=== PATIENT | female | born 1990 | race Caucasian/White ===

== ENCOUNTER → 2017-03-05 | Outpatient (CLI) | payer BC ==
[~2017-03-05] MED LIST: ALKA SELTZER; CYAN10004 PO; MULTTAB58 PO
== END | disposition home or self-care (01) ==
LOC: C.PAPS 14:34
PROVIDERS: ATTEND Obstetrics & Gynecology
DX: Z01.411 Encounter for gynecological examination (general) (routine) with abnormal findings (principal); R87.612 Low grade squamous intraepithelial lesion on cytologic smear of cervix (LGSIL)

== ENCOUNTER → 2017-03-05 | Outpatient (CLI) | payer BC ==
[2017-03-08 01:20] LABS: CHLAMYDIA TRACH RNA*** NOT DETECTED (NOT DETECTED); GC (NEIS GONORRHOEAE)RNA** NOT DETECTED (NOT DETECTED)
== END | disposition home or self-care (01) ==
LOC: C.LABSPEC 13:29
PROVIDERS: ATTEND Obstetrics & Gynecology
DX: Z11.3 Encounter for screening for infections with a predominantly sexual mode of transmission (principal)

== ENCOUNTER → 2017-05-10 | Outpatient (CLI) | payer OTHER | END | disposition home or self-care (01) | LOC: C.PATHSPEC 16:05 | PROVIDERS: ATTEND Obstetrics & Gynecology | DX: R87.619 Unspecified abnormal cytological findings in specimens from cervix uteri (principal) ==

== ENCOUNTER 2019-02-18 07:38 | Inpatient (IN) ==
[2019-02-18] MEDS ORDERED: OXYTOCIN 30 UNITS/500 ML BAG IV PRN ×3 (07:42→22:51)
--- NOTE | 2019-02-18 07:48 | History & Physical Report ---
Date of Service February 18, 2019 Assessment & Plan (1) Encounter for supervision in primigravida, antepartum: IUP at 40w 4d presenting to L&D for induction of labor with regular contractions -will perform AROM; consider starting pitocin drip -patient is currently undecided on her pain plan; considering epidural - tracing category I - anticipate History of Present Illness Primary Care Provider: NO PCP Ana is a 28 yo at 40w 4d (dating via LMP) with an LEO of 02/14/19 who presents to L&D for induction of labor. A Benjamin bulb was inserted last night; it fell out at 7am on day of admission. Ana experienced painful contractions overnight while the benjamin was in place, but has not felt any since it fell out. She noticed some vaginal bleeding overnight. + movements - loss of fluid. Blood type is B neg; she was given Rhogam 11/25/18. GBS neg, Rubella Immune. Course: Ana had an atypical PAP smear obtained during this with LGSIL, HPV+. She will have a colposcopy in the post- period. She had an elevated 1 hour glucola, but a normal two hour glucose test. Allergies Allergy/AdvReac Type Severity Reaction Status Date / Time No Known Drug Allergies Allergy Verified 02/17/19 11:03 Home Medications Home Medications Medication Instructions Recorded Confirmed Type vit no.[id number] 1 tab PO DAILY 02/17/19 02/17/19 History [ Vitamin] Patient History Medical History Depression No meds H/O varicella 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; colpo Surgical History S/P wisdom tooth extraction Family History Sister Cervical cancer Kidney disease Ovarian cyst Mother Hypothyroidism Brother Congenital absence of one kidney Social History Preferred Language: Burkin[place] Beliefs That Will Affect Care: None marital status: Current Living Situation: Spouse Other Information That Helps Us Care for You: No Feels Safe at Home: Yes Safety Concerns: Feels Safe At This Time Smoking Status: Never smoker Do You Dip or Chew Tobacco: No ; Second Hand Exposure: No ; Tobacco Cessation Education Requested by Patient: No Hx Alcohol Use: No Hx Substance Use: No Review of Systems no fever, no chills and no sweats no worsening vision no cough and no dyspnea no chest pain, no palpitations and no calf pain no nausea, no vomiting, no constipation and no diarrhea/loose stools no dysuria and no urinary frequency Physical Exam Constitutional: WD/WN, vitals as above Eyes: + anicteric sclerae Neck: normal visual inspection Respiratory: normal respiratory effort, lungs clear to auscultation does not use accessory muscles Auscultation: no crackles, no rales, no wheezes and no pleural rub Cardiovascular: Rate/Rhythm: regular rate and regular rhythm Heart Sounds: normal S1 and normal S2; no gallop, no murmur and no cardiac rub Gastrointestinal (Abdomen): Gravid. Uterus at term; + heart tones; vertex position, estimated weight : 7lbs Neurologic: awake; no focal motor deficits Psychiatric: A+Ox3, euthymic affect Genitourinary: OB Exam Abdomen: + regular contractions Manual OB Exam: + cervical dilation 5 cm, + cervical effacement 80% and + station -1 OB Exam Monitor Tracing: + external FHT monitor used, + external uterine monitor used an d + normal FHT variability Cervical Exam: 5 cm/ 80 % effacement/ -1 station, soft and mid-position Results & Data Laboratory Results 02/18/19 Range/Units 07:51 WBC 11.80 H (4.8-10.8) K/uL RBC 4.40 (4.2-5.4) M/uL Hgb 13.5 (12.0-16.0) g/dL Hct 39.2 (37-47) % MCV 89.1 (80-100) fL MCH 30.7 (25-34) pg MCHC 34.4 (32-36) g/dL RDW Std Deviation 40.3 (36.4-46.3) fL RDW Coeff of Filemon 12.5 (11.5-14.5) % Plt Count 177 (130-400) K/uL MPV 10.0 (7.4-10.4) fL Code Status & VTE Plan VTE Prophylaxis Plan VTE Prophylaxis will be ordered: Yes Monitoring External Monitor Baseline HR: 120s bpm. Moderate Variability. +2 accels within 20 min. No decels. Category I Tocodynamometer Contractions occurring every 4-5 minutes. Supervising Physician Co-Signing Physician Notes Resident Physician Supervision Note: I interviewed and examined the patient. Discussed with Dr. Luther and agree with findings and plan as documented in the note. Any exceptions or clarifications are listed here: [None] Documented By: Lavern Virgen MD, FACOG Resident Activity Tracking Resident Involvement: Resident Care Provided Care Provided: OB Delivery
[2019-02-18 08:07] LABS: Hematocrit (blood only) 39.2 % (37-47); Hemoglobin 13.5 g/dL (12.0-16.0); Mean Corpuscular Hemoglobin 30.7 pg (25-34); Mean Corpuscular Volume 89.1 fL (80-100); Platelet Count 177 K/uL (130-400); RDW Coefficient of Variation 12.5 % (11.5-14.5); RDW Standard Deviation 40.3 fL (36.4-46.3)
[2019-02-18 08:11] LABS: Mean Corpuscular Hgb Conc 34.4 g/dL (32-36)
[2019-02-18] MEDS: LACTATED RINGER'S 1,000 ML IV PRN ×3 (08:18→14:15)
[2019-02-18] MEDS ORDERED: fentaNYL citrate 100 MCG/2 ML VIAL ONE (11:37)
[2019-02-18] MEDS ORDERED: BUPIVACAINE 0.25% 30 ML VIAL ONE (11:37)
[2019-02-18] MEDS ORDERED: ePHEDrine sulfate 50 MG/ML AMP ONE (11:37)
[2019-02-18] MEDS ORDERED: fentaNYL 2MCG/ML ROPIV 1.25MG/ML 100 ML BAG EPI ONE (11:38)
--- NOTE | 2019-02-18 11:54 | Anesthesiology Consultation ---
Date of Service February 18, 2019 Assessment & Plan Chart Review Chart Review: Acceptable Risk for Surgery and Acceptable Risk for Labor Epidural Consults Requested none ASA ASA2 Proposed Anesthesia Anesthesia Type: Labor Epidural Risk / Benefits Reviewed With: PT / POA / Parent / Guardian, Accepts Plan and Informed Consent Obtained History Height/Weight Height: 5 ft 3 in Weight: 73.482 kg Allergies Allergy/AdvReac Type Severity Reaction Status Date / Time No Known Drug Allergies Allergy Verified 02/17/19 11:03 Medications Home Medications Medication Instructions Recorded Confirmed Last Taken vit no.[id number] 1 tab PO DAILY 02/17/19 02/17/19 02/17/19 08:00 [ Vitamin] Active Medications Generic Name Dose Route Start Last Admin Trade Name Freq PRN Reason Stop Dose Admin Lactated Ringer's 1,000 mls @ 125 mls/hr 02/18/19 07:43 02/18/19 11:33 Lr IV 02/20/19 07:42 999 mls/hr .Q8H PRN Infusion L&D Protocol Protocol Past Medical History Medical History Depression No meds H/O varicella 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; colpo Exercise / Class Metabolic Activity II 4-5 Yardwork/Stairs/Walk up hill Past Family History Family History Sister Cervical cancer Kidney disease Ovarian cyst Mother Hypothyroidism Brother Congenital absence of one kidney Past Surgical History Surgical History S/P wisdom tooth extraction Past Anesthesia History No Hx of Anesthesia Complications and No Family Hx of Anesthesia Complications History of PONV No Hx of PONV and No Hx of Motion Sickness Social History Smoking Status: Never smoker Do You Dip or Chew Tobacco: No Hx Alcohol Use: No Hx Substance Use: No substance use type: does not use Physical Exam Vital Signs Last Vital Signs Temp 36.6 C 02/18/19 11:25 Pulse 80 02/18/19 12:26 Resp 22 02/18/19 11:25 BP 122/75 02/18/19 12:26 Pulse Ox 100 02/18/19 12:26 Testing Laboratory Results 02/18/19 07:51
[2019-02-18] MEDS ORDERED: NALBUPHINE HCL INJ 10 MG/ML AMP IV PRN (12:29)
[2019-02-18] MEDS ORDERED: DiphenhydrAMINE HCL 50 MG/ML VIAL IV PRN (12:29)
[2019-02-18] MEDS ORDERED: NALOXONE HCL 1 MG in SODIUM CHLORIDE 0.9% 1000ML 1,000 ML IV PRN (12:29)
[2019-02-18] MEDS ORDERED: fentaNYL 2MCG/ML ROPIV 1.25MG/ML 100 ML BAG EPI PRN (12:29)
[2019-02-18] MEDS ORDERED: ePHEDrine sulfate 50 MG/ML AMP IV PRN (12:29)
[2019-02-18] MEDS ORDERED: NALOXONE HCL 0.4 MG/1 ML VIAL/CARP IV PRN (12:29)
[2019-02-18] MEDS ORDERED: ONDANSETRON INJ 2 MG/ML 2 ML VIAL IV PRN (17:59)
[2019-02-18 21:09] VITALS: O2SAT 99
--- NOTE | 2019-02-18 22:07 | Anesthesiology Progress Note ---
Date of Service February 18, 2019 Anesthesia Post Procedure Vital Signs Vital Signs: Temp Pulse Resp BP Pulse Ox 02/18/19 22:00 92 H 118/73 02/18/19 21:45 18 02/18/19 21:30 89 18 117/73 02/18/19 21:16 37.0 C 92 H 18 124/70 02/18/19 21:08 92 H 99 02/18/19 21:03 100 H 98 02/18/19 21:02 99 H 115/68 02/18/19 20:58 91 H 96 02/18/19 20:53 106 H 99 02/18/19 20:51 87 91 02/18/19 20:48 75 130/94 02/18/19 20:46 75 99 02/18/19 20:43 85 91 02/18/19 20:41 86 98 02/18/19 20:37 83 91 02/18/19 20:36 71 99 02/18/19 20:33 93 H 129/62 02/18/19 20:31 68 100 02/18/19 20:28 73 91 02/18/19 20:26 93 H 100 02/18/19 20:21 73 100 02/18/19 20:18 90 118/63 90 02/18/19 20:16 70 100 02/18/19 20:11 71 100 02/18/19 20:06 71 100 02/18/19 20:05 70 94 02/18/19 20:01 81 100 02/18/19 19:59 78 91 02/18/19 19:56 76 99 02/18/19 19:51 76 100 02/18/19 19:47 73 109/65 02/18/19 19:46 72 99 02/18/19 19:41 81 98 02/18/19 19:36 70 100 02/18/19 19:34 81 114/64 02/18/19 19:31 74 100 02/18/19 19:26 75 100 02/18/19 19:21 71 100 02/18/19 19:17 69 117/72 02/18/19 19:16 65 100 02/18/19 19:11 72 98 02/18/19 19:09 36.7 C 18 02/18/19 19:06 78 100 02/18/19 19:04 75 128/84 02/18/19 19:01 73 100 02/18/19 18:56 73 100 02/18/19 18:51 74 100 02/18/19 18:47 75 131/83 02/18/19 18:46 76 100 02/18/19 18:41 70 100 02/18/19 18:36 78 99 02/18/19 18:32 78 128/85 02/18/19 18:31 70 100 02/18/19 18:26 73 100 02/18/19 18:21 71 100 02/18/19 18:17 81 129/86 02/18/19 18:16 77 99 02/18/19 18:15 95 H 134/82 02/18/19 18:11 76 100 02/18/19 18:06 77 100 02/18/19 18:03 83 128/80 02/18/19 18:01 82 100 02/18/19 17:56 77 100 02/18/19 17:51 79 100 02/18/19 17:47 81 123/81 02/18/19 17:46 83 99 02/18/19 17:41 73 100 02/18/19 17:36 82 100 02/18/19 17:33 78 137/84 02/18/19 17:32 84 94 02/18/19 17:31 84 94 02/18/19 17:26 80 100 02/18/19 17:21 82 100 02/18/19 17:18 76 131/85 02/18/19 17:16 72 100 02/18/19 17:11 82 100 02/18/19 17:06 85 100 02/18/19 17:04 72 135/86 02/18/19 17:01 79 100 02/18/19 16:56 77 100 02/18/19 16:51 94 H 100 02/18/19 16:48 77 132/80 02/18/19 16:46 83 99 02/18/19 16:41 84 99 02/18/19 16:36 82 99 02/18/19 16:31 82 126/70 99 02/18/19 16:26 78 125/79 99 02/18/19 16:22 83 122/73 02/18/19 16:21 80 99 02/18/19 16:16 78 100 02/18/19 16:15 78 128/69 02/18/19 16:12 81 129/74 02/18/19 16:11 84 100 02/18/19 16:06 85 99 02/18/19 16:05 83 124/80 02/18/19 16:01 86 119/77 99 02/18/19 16:00 18 02/18/19 15:57 80 121/75 02/18/19 15:56 83 99 02/18/19 15:52 79 121/75 02/18/19 15:51 80 100 02/18/19 15:48 89 119/55 L 02/18/19 15:46 87 99 02/18/19 15:42 97 H 113/73 02/18/19 15:41 96 H 100 02/18/19 15:40 36.6 C 18 02/18/19 15:36 87 117/71 99 02/18/19 15:31 86 99 02/18/19 15:30 83 120/73 02/18/19 15:26 83 99 02/18/19 15:25 81 118/75 02/18/19 15:21 84 100 02/18/19 15:16 78 110/63 100 02/18/19 15:11 80 100 02/18/19 15:10 82 110/62 02/18/19 15:06 75 111/65 100 02/18/19 15:01 81 100 02/18/19 15:00 81 18 108/63 02/18/19 14:56 80 99 02/18/19 14:55 82 111/60 02/18/19 14:52 84 111/58 L 02/18/19 14:51 83 100 02/18/19 14:47 81 112/63 02/18/19 14:46 87 100 02/18/19 14:42 76 110/61 02/18/19 14:41 78 100 02/18/19 14:36 78 100 02/18/19 14:35 74 108/65 02/18/19 14:31 76 108/62 100 02/18/19 14:30 18 02/18/19 14:26 78 100 02/18/19 14:25 78 111/63 02/18/19 14:24 84 91 02/18/19 14:21 78 109/60 100 02/18/19 14:16 79 100 02/18/19 14:15 78 108/58 L 02/18/19 14:12 81 110/86 02/18/19 14:11 76 100 02/18/19 14:06 76 100 02/18/19 14:05 75 105/59 L 02/18/19 14:01 78 100 02/18/19 14:00 78 18 107/59 L 02/18/19 13:56 73 108/57 L 100 02/18/19 13:52 79 109/57 L 02/18/19 13:51 81 100 02/18/19 13:46 73 100 02/18/19 13:45 72 18 99/56 L 02/18/19 13:41 73 100 02/18/19 13:40 36.7 C 73 90/55 L 02/18/19 13:36 73 100 02/18/19 13:35 76 94/51 L 02/18/19 13:33 74 101/58 L 02/18/19 13:31 81 100 02/18/19 13:30 18 02/18/19 13:26 79 99 02/18/19 13:25 83 93/55 L 02/18/19 13:21 72 93/50 L 100 02/18/19 13:19 73 89/50 L 02/18/19 13:16 73 89/51 L 100 02/18/19 13:15 20 02/18/19 13:12 70 88/54 L 02/18/19 13:11 74 99 02/18/19 13:09 67 102/55 L 02/18/19 13:06 71 99 02/18/19 13:01 81 108/69 99 02/18/19 13:00 20 02/18/19 12:56 81 113/74 99 02/18/19 12:51 77 99 02/18/19 12:50 75 114/70 02/18/19 12:46 75 99 02/18/19 12:45 81 20 114/74 02/18/19 12:41 79 99 02/18/19 12:40 74 115/73 02/18/19 12:38 81 119/75 02/18/19 12:37 80 93 02/18/19 12:36 78 117/75 99 02/18/19 12:34 74 116/76 02/18/19 12:32 71 125/82 02/18/19 12:31 70 98 02/18/19 12:30 67 22 127/85 02/18/19 12:28 75 125/80 02/18/19 12:27 20 02/18/19 12:26 80 122/75 100 02/18/19 12:24 78 117/70 02/18/19 12:22 72 22 126/65 02/18/19 12:21 75 100 02/18/19 12:20 75 130/77 02/18/19 12:18 74 128/79 02/18/19 12:17 22 02/18/19 12:16 72 137/79 100 02/18/19 12:14 121/70 02/18/19 12:12 76 125/65 02/18/19 12:11 74 99 02/18/19 12:10 85 116/65 02/18/19 12:08 82 127/80 02/18/19 12:06 92 H 146/84 H 82 L 02/18/19 12:04 86 144/91 H 02/18/19 12:01 91 H 100 02/18/19 11:56 75 100 02/18/19 11:25 36.6 C 74 22 123/74 02/18/19 10:15 73 124/82 02/18/19 08:20 85 114/75 02/18/19 08:19 36.3 C L 85 18 114/75 Pain Intensity Lower Abdomen: Pain Intensity: 0 Transfer of Care Handoff Completed per policy Notes Mental Status: alert / awake / arousable and participated in evaluation Patient Amnestic to Procedure: Yes Nausea / Vomiting: adequately controlled Pain: adequately controlled Airway Patency, RR, SpO2: stable & adequate BP & HR: stable & adequate Hydration State: stable & adequate Anesthetic Complications: no major complications apparent and Pt Satisfied with anesthetic care
--- NOTE | 2019-02-18 22:08 | Anesthesia Procedure Note ---
Date of Service February 18, 2019 Anesthesia Post Epidural Note Vital Signs Vital Signs: Temp Pulse Resp BP Pulse Ox 37.0 C 92 H 18 118/73 99 02/18/19 21:16 02/18/19 22:00 02/18/19 21:45 02/18/19 22:00 02/18/19 21:08 Pain Intensity Lower Abdomen: Pain Intensity: 0 Notes Mental Status: alert / awake / arousable and participated in evaluation Patient Amnestic to Procedure: Yes Nausea / Vomiting: adequately controlled Pain: adequately controlled Airway Patency, RR, SpO2: stable & adequate BP & HR: stable & adequate Hydration State: stable & adequate Anesthetic Complications: no major complications apparent and Pt Satisfied with anesthetic care
[2019-02-18] MEDS ORDERED: IBUPROFEN 600 MG TAB PO PRN (22:51)
[2019-02-18] MEDS ORDERED: DIPHTHERIA/TETANUS/PERTUSSIS 0.5 ML SYR/VIAL IM ONE (22:51)
[2019-02-18] MEDS ORDERED: SUPERCREAM 0.870% 15 GM JAR EXT PRN (22:51)
[2019-02-18] MEDS ORDERED: ACETAMINOPHEN 325 MG TAB PO PRN (22:51)
[2019-02-18] MEDS ORDERED: BISACODYL 10 MG SUPP PR PRN (22:51)
[2019-02-18] MEDS ORDERED: HYDROCORTISONE ACETATE 25 MG SUPP PR PRN (22:51)
[2019-02-18] MEDS ORDERED: OXYCODONE/ACETAMINOPHEN 5mg/325mg TAB PO PRN (22:51)
[2019-02-19] MEDS: BENZOCAINE 20% AER SPR 82.5 GM CAN EXT PRN (01:27)
--- NOTE | 2019-02-19 01:45 | Delivery Summary ---
DATE OF OPERATION: 02/18/2019 The patient is a 28-year-old G1, P0 white female who presents at 40-4/7 weeks for induction of labor because of post-term . She presented for a cervical balloon on the evening of 02/17. The balloon fell out at 7 a.m. in the morning. She was having regular contractions about 4-5 minutes, but were mild. On presentation to labor and delivery on the morning of 02/18, she was 4 cm dilated. Membranes were ruptured for clear fluid. She received effective epidural analgesia. She did require low dose Pitocin augmentation to continue an effective contraction pattern. She progressed to full dilation, and when the urge to push was present, she pushed effectively over intact perineum for the delivery of a viable male . There was a loose nuchal cord which was reduced prior to delivering the rest of the infant. The rest of the delivered easily and was placed on the mother's abdomen for further attention and drying. There was terminal bradycardia immediately prior to the delivery of the . There was poor respiratory response shortly after delivery. The cord was then clamped and cut and the infant was placed on the baby bed for further attention and drying. At that point, the had spontaneous crying and was moving all 4 limbs. The placenta was then expressed intact with a 3-vessel cord. There was a first-degree perineal laceration which was repaired with 3-0 chromic in the usual fashion. There was noted to be a superficial tear in the umbilical cord .Whether it was distal or proximal to the cord clamping, it was unclear.Dr. German was called to evaluate the baby because of this finding. After stimulation & drying theninfant had good respiratory effort and good tone. Apgars were 6 and 8. Estimated blood loss was 400 mL. Post- bleeding was controlled with dilute Pitocin. Mother and were then doing well post delivery. I attest to the content of the Intraoperative Record and any orders documented therein. Any exceptions are noted below. DEEPTHID
--- NOTE | 2019-02-19 06:01 | Obstetrical Progress Note ---
Date of Service February 19, 2019 Assessment & Plan (1) Status post vaginal delivery: Ana is a 28 yo on PPD1 after a at 40w. - GBS-, Blood Type B-, Rubella immune -Vitals reviewed and WNL (Tmax 37.0) -Baby's blood type: AB+; will order Rhogam -patient is doing clinically well continue routine post- care - After discharge will have [address] Acosta. Supervising Physician Co-Signing Physician Notes Resident Physician Supervision Note: I interviewed and examined the patient. Discussed with Dr. Luther and agree with findings and plan as documented in the note. Any exceptions or clarifications are listed here: [None] Documented By: Lavern Virgen MD, FACOG Subjective Pain is minimal Ambulation: ambulating normally Voiding: no voiding problems Passing Gas:: Yes Diet Tolerance:: regular diet Lochia:: moderate Feeding Type:: breast feeding Review of Systems Constitutional: no fever, no chills and no sweats Eyes: no worsening vision Respiratory: no cough and no dyspnea Cardiovascular: no chest pain, no palpitations, no edema and no calf pain Gastrointestinal: no nausea and no vomiting Genitourinary: no dysuria and no urinary frequency Neurologic: no headache(s) Physical Exam Constitutional: WD/WN, vitals as above no acute distress Eyes: + anicteric sclerae Neck: normal visual inspection Respiratory: normal respiratory effort, lungs clear to auscultation does not use accessory muscles Auscultation: no crackles, no rales, no wheezes and no pleural rub Cardiovascular: Rate/Rhythm: regular rate and regular rhythm Heart Sounds: normal S1 and normal S2; no gallop, no murmur and no cardiac rub Extremities: no calf tenderness and no pedal edema Gastrointestinal (Abdomen): Inspection/Auscultation: normal bowel sounds; abdomen not distended Percussion/Palpation: abdomen soft Neurologic: awake; no focal motor deficits Psychiatric: A+Ox3, euthymic affect Genitourinary: Uterus: fundus firm, palpable 1 cm below the umbilicus Results & Data Vital Signs (Past 12 Hours) Vital Signs Temp Pulse Pulse Resp BP BP Pulse Ox 02/19/19 04:00 36.7 C 80 18 125/76 02/19/19 00:00 36.8 C 85 18 116/75 99 02/18/19 23:15 82 18 126/71 02/18/19 23:00 92 H 115/66 02/18/19 22:45 89 124/77 02/18/19 22:30 85 121/76 02/18/19 22:15 36.9 C 90 18 124/79 02/18/19 22:00 92 H 18 118/73 02/18/19 21:45 18 02/18/19 21:30 89 18 117/73 02/18/19 21:16 37.0 C 92 H 18 124/70 02/18/19 21:08 92 H 99 02/18/19 21:03 100 H 98 02/18/19 21:02 99 H 115/68 02/18/19 20:58 91 H 96 02/18/19 20:53 106 H 99 02/18/19 20:51 87 91 02/18/19 20:48 75 130/94 02/18/19 20:46 75 99 02/18/19 20:43 85 91 02/18/19 20:41 86 98 02/18/19 20:37 83 91 02/18/19 20:36 71 99 02/18/19 20:33 93 H 129/62 02/18/19 20:31 68 100 02/18/19 20:28 73 91 02/18/19 20:26 93 H 100 02/18/19 20:21 73 100 02/18/19 20:18 90 118/63 90 02/18/19 20:16 70 100 02/18/19 20:11 71 100 02/18/19 20:06 71 100 02/18/19 20:05 70 94 02/18/19 20:01 81 100 02/18/19 19:59 78 91 02/18/19 19:56 76 99 02/18/19 19:51 76 100 02/18/19 19:47 73 109/65 02/18/19 19:46 72 99 02/18/19 19:41 81 98 02/18/19 19:36 70 100 02/18/19 19:34 81 114/64 02/18/19 19:31 74 100 02/18/19 19:26 75 100 02/18/19 19:21 71 100 02/18/19 19:17 69 117/72 02/18/19 19:16 65 100 02/18/19 19:11 72 98 02/18/19 19:09 36.7 C 18 02/18/19 19:06 78 100 02/18/19 19:04 75 128/84 02/18/19 19:01 73 100 02/18/19 18:56 73 100 02/18/19 18:51 74 100 02/18/19 18:47 75 131/83 02/18/19 18:46 76 100 02/18/19 18:41 70 100 02/18/19 18:36 78 99 02/18/19 18:32 78 128/85 02/18/19 18:31 70 100 02/18/19 18:26 73 100 02/18/19 18:21 71 100 02/18/19 18:17 81 129/86 02/18/19 18:16 77 99 02/18/19 18:15 95 H 134/82 02/18/19 18:11 76 100 02/18/19 18:06 77 100 02/18/19 18:03 83 128/80 02/18/19 18:01 82 100 Resident Activity Tracking Resident Involvement: Resident Care Provided Care Provided: OB Delivery
[2019-02-19 07:05] LABS: Hematocrit (blood only) 32.2 % (37-47); Hemoglobin 11.2 g/dL (12.0-16.0); Mean Corpuscular Hemoglobin 31.2 pg (25-34); Mean Corpuscular Hgb Conc 34.8 g/dL (32-36); Mean Corpuscular Volume 89.7 fL (80-100); Mean Platelet Volume 9.7 fL (7.4-10.4); Platelet Count 162 K/uL (130-400); RDW Coefficient of Variation 12.7 % (11.5-14.5); Red Blood Count 3.59 M/uL (4.2-5.4); White Blood Count 15.57 K/uL (4.8-10.8)
[2019-02-19] MEDS: PRENATAL VITAMIN 1 TAB PO SCH (09:56)
[2019-02-19] MEDS: DOCUSATE SODIUM 100 MG CAP PO SCH ×2 (09:56→22:00)
[2019-02-19] MEDS ORDERED: BISACODYL 5 MG TABEC PO SCH (20:00)
--- NOTE | 2019-02-20 06:39 | Obstetrical Progress Note ---
Date of Service February 20, 2019 Assessment & Plan (1) Status post vaginal delivery: Ana is a 28 yo on PPD2 after a at 40w. - GBS-, Blood Type B-, Rubella immune -Vitals reviewed and WNL (Tmax 37.0) -Baby's blood type: AB+; Rhogam given -patient is doing clinically well discharge instructions reviewed - After discharge will have [address] Acosta. Supervising Physician Co-Signing Physician Notes Resident Physician Supervision Note: I was present with Dr. Luther during the history and exam. I discussed the case with the resident and agree with the findings and plan as documented in the note. Any exceptions or clarifications are listed here: Discharge instructions given, f/u in 6 weeks Documented By: Sukumar Arellano Jr, MD, FACOG Subjective Pain is minimal Ambulation: ambulating normally Voiding: no voiding problems Passing Gas:: Yes Diet Tolerance:: regular diet Lochia:: mild Feeding Type:: breast feeding Review of Systems Constitutional: no fever, no chills and no sweats Eyes: no worsening vision Respiratory: no cough and no dyspnea Cardiovascular: no chest pain, no palpitations, no edema and no calf pain Gastrointestinal: no nausea and no vomiting Genitourinary: no dysuria and no urinary frequency Neurologic: no headache(s) Physical Exam Constitutional: WD/WN, vitals as above no acute distress Eyes: + anicteric sclerae Neck: normal visual inspection Respiratory: normal respiratory effort, lungs clear to auscultation does not use accessory muscles Auscultation: no crackles, no rales, no wheezes and no pleural rub Cardiovascular: Rate/Rhythm: regular rate and regular rhythm Heart Sounds: normal S1 and normal S2; no gallop, no murmur and no cardiac rub Extremities: no calf tenderness and no pedal edema Gastrointestinal (Abdomen): Inspection/Auscultation: normal bowel sounds; abdomen not distended Percussion/Palpation: abdomen soft Neurologic: awake; no focal motor deficits Psychiatric: A+Ox3, euthymic affect Genitourinary: Uterus: fundus firm, palpable 2 cm below the umbilicus Results & Data Vital Signs (Past 12 Hours) Vital Signs Temp Pulse Resp BP Pulse Ox 02/19/19 23:50 36.7 C 81 18 110/73 02/19/19 19:50 36.8 C 96 H 21 130/71 99 Resident Activity Tracking Resident Involvement: Resident Care Provided Care Provided: OB Delivery
[2019-02-20 06:51] LABS: Hematocrit (blood only) 34.2 % (37-47); Hemoglobin 11.7 g/dL (12.0-16.0)
[2019-02-20] MEDS: PRENATAL VITAMIN 1 TAB PO SCH (08:09)
[2019-02-20] MEDS: DOCUSATE SODIUM 100 MG CAP PO SCH (08:09)
[2019-02-20] MEDS: BENZOCAINE 20% AER SPR 82.5 GM CAN EXT PRN (08:12)
[2019-02-20 08:23] VITALS: BP 109/72; PULSE 79; TEMP 98.8
== END 2019-02-20 12:01 | disposition home or self-care (01) | DRG 807 ==
LOC: 4S1 07:38 → 4S2 23:57